=== PATIENT | male | born 2000 | race Caucasian/White ===

== ENCOUNTER 2021-06-19 19:21 | Emergency (ER) | payer OTHER ==
--- NOTE | 2021-06-19 19:26 | ERPHSYRPT ---
- History of Present Illness Time Seen by Provider: 06/19/21 19:26 Source: patient Exam Limitations: clinical condition Physician History: This is a 20-year-old white male who has a history of panic attacks in the past and presents with rapid heart rate and shortness of breath following an emotional event at home. Patient also complains of some mild chest pain, perior al numbness, numbness in hands and feet as well as cramping in his hands and feet prior to arrival. Patient is tearful. Timing/Duration: today Activities at Onset: emotional stress Severity of Dyspnea-Max: moderate Severity of Dyspnea-Current: mild (Moderate) Possible Cause: occasional episodes Modifying Factors: Improves With: activity Associated Symptoms: anxiety, chest pain/discomfort (Mild central substernal nonradiating), muscle spasms feet, muscle spasms hands, tingling face, tingling hands Allergies/Adverse Reactions: No Known Drug Allergies Allergy (Unverified 06/19/21 19:24) Home Medications: No Reportable Medications [No Reported Medications] 06/19/21 [History] Travel Risk - International Travel Have you traveled outside of the country in past 3 weeks: No - Coronavirus Screening Are you exhibiting any of the following symptoms?: No Close contact with a COVID-19 positive Pt in past 14-21 Days: No - Review of Systems Constitutional: No Symptoms Eyes: No Symptoms Ears, Nose, & Throat: No Symptoms Respiratory: Dyspnea Cardiac: Chest Pain Abdominal/Gastrointestinal: No Symptoms Genitourinary Symptoms: No Symptoms Musculoskeletal: No Symptoms Skin: No Symptoms Neurological: No Symptoms Psychological: No Symptoms Endocrine: No Symptoms Hematologic/Lymphatic: No Symptoms Immunological/Allergic: No Symptoms All Other Systems: Reviewed and Negative - Past Medical History Pertinent Past Medical History: No - Past Surgical History Past Surgical History: No - Nursing Vital Signs Nursing Vital Signs: Initial Vital Signs Temperature 97.9 F 06/19/21 19:24 Pulse Rate 138 H 06/19/21 19:24 Respiratory Rate 30 H 06/19/21 19:24 Blood Pressure 156/105 06/19/21 19:24 O2 Sat by Pulse Oximetry 100 06/19/21 19:24 Pain Scale Pain Intensity 0 - Physical Exam General Appearance: mild distress, alert, anxiety Eye Exam: PERRL/EOMI, eyes nml inspection Ears, Nose, Throat Exam: hearing grossly normal, normal ENT inspection Neck Exam: normal inspection, non-tender, supple, full range of motion Respiratory Exam: normal breath sounds, lungs clear, airway intact, No chest tenderness, No respiratory distress Cardiovascular/Chest Exam: tachycardia Abdominal/Gastrointestinal Exam: soft, normal bowel sounds, No tenderness Rectal Exam: not done Extremity Exam: non-tender, normal range of motion, normal inspection, normal capillary refill, no calf tenderness, no pedal edema, pelvis stable Neurologic Exam: alert, oriented x 3, cooperative, rhia II-XII nml as tested, normal mood/affect, nml cerebellar function, nml station & gait, sensation nml Skin Exam: normal color, warm, dry Lymphatic Exam: No adenopathy SpO2 Interpretation: normal O2 Delivery: Room Air - Course Nursing assessment & vital signs reviewed: Yes EKG Interpreted by Me: RATE (132), Sinus Tach, Right [place] Deviation, Non- specific ST Changes, Other (No acute ischemic changes. No comparison EKG) Ordered Tests: Active Orders 24 hr Category Date Time Status EKG-ER Only STAT Care 06/19/21 19:35 Active CHEST 1 VIEW (PORTABLE) Stat Exams 06/19/21 19:35 Taken CBC W DIFF Stat Lab 06/19/21 19:45 Completed CMP Stat Lab 06/19/21 19:45 Completed TROPONIN Q3H Lab 06/19/21 20:15 Completed TROPONIN Q3H Lab 06/19/21 23:15 Ordered Medication Summary Discontinued Medications Generic Name Dose Route Start Last Admin Trade Name Katy PRN Reason Stop Dose Admin Lorazepam 0.5 mg 06/19/21 19:36 06/19/21 19:44 Lorazepam 0.5 Mg Tablet PO 06/19/21 19:37 0.5 mg STAT ONE Administration Lorazepam Confirm 06/19/21 19:42 Lorazepam 1 Mg Tablet Administered 06/19/21 19:43 Dose 1 mg .ROUTE .STK-MED ONE Lab/Rad Data: Laboratory Result Diagrams 06/19/21 19:45 06/19/21 19:45 Laboratory Results 06/19/21 06/19/21 06/19/21 Range/Units 20:15 19:45 19:45 WBC 10.7 H (4.0-10.5) K/mm3 RBC 5.27 (4.1-5.6) M/mm3 Hgb 16.1 (12.5-18.0) gm/dl Hct 47.4 (42-50) % MCV 89.9 (78-100) fl MCH 30.6 (26-32) pg MCHC 34.0 (32-36) g/dl RDW 12.8 (11.5-14.0) % Plt Count 376 (150-450) K/mm3 MPV 9.9 (7.5-11.0) fl Gran % 50.1 (36.0-66.0) % Eos # (Auto) 0.20 (0-0.5) Absolute Lymphs (auto) 3.83 (1.0-4.6) Absolute Monos (auto) 1.26 (0.0-1.3) Lymphocytes % 35.7 (24.0-44.0) % Monocytes % 11.8 (0.0-12.0) % Eosinophils % 1.9 (0.00-5.0) % Basophils % 0.5 (0.0-0.4) % Absolute Granulocytes 5.38 (1.4-6.9) Basophils # 0.05 (0-0.4) Sodium 144 (137-145) mmol/L Potassium 4.5 (3.5-5.1) mmol/L Chloride 109 H (98-107) mmol/L Carbon Dioxide 17 L (22-30) mmol/L Anion Gap 23.0 H (5-15) MEQ/L BUN 10 (9-20) mg/dL Creatinine 1.00 (0.66-1.25) mg/dL Estimated GFR > 60.0 ML/MIN Glucose 97 (74-106) mg/dL Calcium 11.0 H (8.4-10.2) mg/dL Total Bilirubin 2.00 H (0.2-1.3) mg/dL AST 29 (17-59) U/L ALT 31 (0-50) U/L Alkaline Phosphatase 77 (38-126) U/L Troponin I < 0.012 (0.000-0.034) ng/mL Serum Total Protein 8.3 H (6.3-8.2) g/dL Albumin 5.3 H (3.5-5.0) g/dL - Progress Progress: improved, re-examined Air Movement: good Progress Note: 06/19/21 20:11 Chest x-ray shows no acute cardiopulmonary process. 06/19/21 20:33 This patient is doing much better. Patient's chest pain has resolved. His shortness of breath and tachypnea is also resolved. His respiratory rate is now 12 and his heart rate is now in the high 80s low 90s. His room air oxygenation was 97-98%. I did not feel is necessary to do a D-dimer test. The patient has symptoms that was directly related to high emotional stress situation. Blood Culture(s) Obtained: No Antibiotics given: No Counseled pt/family regarding: lab results, diagnosis, need for follow-up, rad results - Departure Departure Disposition: Home Clinical Impression: Non-cardiac chest pain, Panic disorder Condition: Stable Critical Care Time: No Additional Instructions: Follow-up with your prescribing doctor for further evaluation management. Avoid stressful, emotional situations and environment.
[2021-06-19] MEDS ORDERED: Ativan 0.5 MG PO ONE (19:36)
[2021-06-19] MEDS ORDERED: Ativan 1 MG ONE (19:42)
[2021-06-19 19:52] LABS: Absolute Neutrophil Ct (ANC) 5.38 (1.4-6.9); Basophil (Absolute #) 0.05 (0-0.4); Eosinophil % 1.9 % (0.00-5.0); Hematocrit 47.4 % (42-50); Hemoglobin 16.1 gm/dl (12.5-18.0); Lymphocyte (Absolute #) 3.83 (1.0-4.6); Lymphocytes % 35.7 % (24.0-44.0); Mean Cell Volume 89.9 fl (78-100); Mean Corpuscular Hemoglobin 30.6 pg (26-32); Mean Platelet Volume 9.9 fl (7.5-11.0); Monocyte (Absolute #) 1.26 (0.0-1.3); Monocytes % 11.8 % (0.0-12.0); Neutrophil % 50.1 % (36.0-66.0); Platelet Count 376 K/mm3 (150-450); Red Blood Count 5.27 M/mm3 (4.1-5.6); Red Cell Distribution Width 12.8 % (11.5-14.0); White Blood Count 10.7 K/mm3 (4.0-10.5)
[2021-06-19 20:05] LABS: ALBUMIN 5.3 g/dL (3.5-5.0); ALKALINE PHOSPHATASE 77 U/L (38-126); BLOOD UREA NITROGEN 10 mg/dL (9-20); CHLORIDE 109 mmol/L (98-107); Carbon Dioxide 17 mmol/L (22-30); EST GLOMERULAR FILTRATION RATE > 60.0 ML/MIN; Glucose 97 mg/dL (74-106); Potassium 4.5 mmol/L (3.5-5.1); SGOT/AST 29 U/L (17-59); SODIUM 144 mmol/L (137-145); Total Protein 8.3 g/dL (6.3-8.2)
[2021-06-19 20:11] LABS: SGPT/ALT 31 U/L (0-50)
[2021-06-19 20:40] VITALS: BP 164/101; PULSE 100; O2SAT 99
--- NOTE | 2021-06-20 07:09 | XRAY ---
Indication: Short of breath. Comparison: None Portable chest demonstrates normal heart, lungs, and bony thorax.
== END 2021-06-19 20:53 | disposition home or self-care (01) ==
LOC: ED 19:21
DX: R07.89 Other chest pain (principal); F41.0 Panic disorder [episodic paroxysmal anxiety]; R06.02 Shortness of breath; R25.2 Cramp and spasm; R20.0 Anesthesia of skin
CPT/HCPCS: 36415; 71045; 80053; 84484; 85025; 93005; 99284; A9270-GY